=== PATIENT | female | born 1940 | race Caucasian/White ===

== ENCOUNTER 2017-07-04 04:49 | Inpatient (IN) | payer MEDICARE, OTHER ==
[2017-07-04 05:11] LABS: ADD MAN DIFF? NO
[2017-07-04 05:13] LABS: BASOPHIL # 0.1 10^3/ul (0.0-0.1); BASOPHILS % 0.7 % (0.0-2.0); EOSINOPHILS # 0.1 10^3/ul (0.0-0.5); EOSINOPHILS % 1.3 % (0.0-7.0); HEMATOCRIT 35.8 % (37.0-47.0); HEMOGLOBIN 12.4 g/dl (12.0-16.0); LYMPHOCYTES # 1.6 10^3/ul (0.8-2.9); LYMPHOCYTES % 21.2 % (15.0-51.0); MEAN CORPUSCULAR HEMOGLOBIN 30.8 pg (29.0-33.0); MEAN CORPUSCULAR HGB CONC 34.6 g/dl (32.0-37.0); MEAN CORPUSCULAR VOLUME 88.8 fl (82.0-101.0); MEAN PLATELET VOLUME 9.9 fl (7.4-10.4); MONOCYTE # 0.9 10^3/ul (0.3-0.9); MONOCYTES % 11.3 % (0.0-11.0); NEUTROPHILS % 65.2 % (39.0-77.0); PLATELET COUNT 259 10^3/UL (140-415); RED BLOOD COUNT 4.03 10^6/ul (4.20-5.40); RED CELL DISTRIBUTION WIDTH 12.3 % (11.5-14.5)
[2017-07-04 05:13] LABS: WHITE BLOOD COUNT 7.6 10^3/ul (4.8-10.8)
[2017-07-04 05:36] LABS: ANION GAP 15 (8-16); BLOOD UREA NITROGEN 18 mg/dl (7-20); CALCIUM 9.3 mg/dl (8.4-10.2); CARBON DIOXIDE 36 mmol/L (21-31); CHLORIDE 95 mmol/L (97-110); CREATININE 0.62 mg/dl (0.44-1.00); GLUCOSE 119 mg/dl (70-220); SODIUM 143 mmol/L (135-144)
[2017-07-04 05:41] LABS: POTASSIUM 2.5 mmol/L (3.5-5.1)
[2017-07-04 05:49] LABS: TROPONIN-I < 0.012 ng/ml (0.00-0.12)
[2017-07-04] MEDS: POTASSIUM CHLORIDE (SR) 20 MEQ TAB PO (05:57)
[2017-07-04] MEDS ORDERED: NITROGLYCERIN (SL) 0.4 MG TAB SL (06:00)
[2017-07-04] MEDS ORDERED: NACL 0.9% 3 ML SYG IV (06:00)
[2017-07-04] MEDS ORDERED: ONDANSETRON 4 MG INJ IV (06:00)
[2017-07-04] MEDS ORDERED: morphine 2 MG INJ IV (06:00)
[2017-07-04] MEDS ORDERED: ALBUTEROL/IPRATROPIUM (NEB) 3 ML AMP HHN (06:00)
[2017-07-04] MEDS ORDERED: ACETAMINOPHEN 325 MG TAB PO (06:00)
[2017-07-04] MEDS: POTASSIUM CHLORIDE 100 ML IVPB ×3 (06:22→11:41)
[2017-07-04] MEDS: ASPIRIN 81 MG TAB PO (09:21)
[2017-07-04] MEDS: HEPARIN 5,000 UNIT/0.5 ML VIAL SC (09:22)
[2017-07-04] MEDS ORDERED: CHLORTHALIDONE 25 MG TAB PO (09:30)
[2017-07-04] MEDS ORDERED: ALBUTEROL HFA 8 GM INHALER INH (09:30)
[2017-07-04] MEDS ORDERED: CYCLOBENZAPRINE 10 MG TAB PO (09:30)
[2017-07-04] MEDS: SALMETEROL/FLUTICASONE 250/50 INHA INH ×3 (09:30→20:48)
[2017-07-04] MEDS: AMLODIPINE 10 MG TAB PO (11:46)
[2017-07-04] MEDS: GABAPENTIN 300 MG CAP PO ×2 (12:33→20:47)
[2017-07-04 12:47] LABS: CREATINE KINASE 65 IU/L (23-200)
[2017-07-04 12:55] LABS: CK INDEX 1.1; CK-MB 0.72 ng/ml (0.0-2.4)
[2017-07-04 13:00] LABS: TROPONIN-I < 0.012 ng/ml (0.00-0.12)
[2017-07-04] MEDS: LABETALOL HCL 20MG INJ IV (15:54)
[2017-07-04] MEDS: RIVAROXABAN 20 MG TABLET PO (18:25)
[2017-07-04 18:28] LABS: CREATINE KINASE 61 IU/L (23-200)
[2017-07-04 18:41] LABS: CK INDEX 1.1; CK-MB 0.65 ng/ml (0.0-2.4)
[2017-07-04 18:49] LABS: TROPONIN-I < 0.012 ng/ml (0.00-0.12)
[2017-07-04] MEDS: MONTELUKAST 10 MG TAB PO (20:47)
[2017-07-05] MEDS: PANTOPRAZOLE (EC) 40 MG TAB PO (06:23)
[2017-07-05 07:46] LABS: ADD MAN DIFF? NO
[2017-07-05 07:53] LABS: BASOPHIL # 0.1 10^3/ul (0.0-0.1); BASOPHILS % 0.7 % (0.0-2.0); EOSINOPHILS # 0.1 10^3/ul (0.0-0.5); EOSINOPHILS % 0.8 % (0.0-7.0); HEMOGLOBIN 12.7 g/dl (12.0-16.0); LYMPHOCYTES # 1.2 10^3/ul (0.8-2.9); LYMPHOCYTES % 14.1 % (15.0-51.0); MEAN CORPUSCULAR HGB CONC 33.4 g/dl (32.0-37.0); MEAN CORPUSCULAR VOLUME 89.8 fl (82.0-101.0); MEAN PLATELET VOLUME 10.4 fl (7.4-10.4); MONOCYTE # 0.9 10^3/ul (0.3-0.9); MONOCYTES % 9.9 % (0.0-11.0); NEUTROPHIL # 6.4 10^3/ul (1.6-7.5); NEUTROPHILS % 74.3 % (39.0-77.0); PLATELET COUNT 285 10^3/UL (140-415); RED BLOOD COUNT 4.23 10^6/ul (4.20-5.40); RED CELL DISTRIBUTION WIDTH 12.7 % (11.5-14.5)
[2017-07-05 07:53] LABS: WHITE BLOOD COUNT 8.6 10^3/ul (4.8-10.8)
[2017-07-05 08:04] LABS: HEMOGLOBIN A1C 6.2 % (0-5.9)
[2017-07-05 08:18] LABS: ALANINE AMINOTRANSFERASE 25 IU/L (13-69); ALBUMIN 4.2 g/dl (3.3-4.9); ALKALINE PHOSPHATASE 136 IU/L (42-121); ANION GAP 17 (8-16); ASPARTATE AMINO TRANSFERASE 27 IU/L (15-46); BILIRUBIN,INDIRECT 0.4 mg/dl (0-1.1); BILIRUBIN,TOTAL 0.4 mg/dl (0.2-1.3); BLOOD UREA NITROGEN 15 mg/dl (7-20); CALCIUM 9.8 mg/dl (8.4-10.2); CARBON DIOXIDE 34 mmol/L (21-31); CHLORIDE 95 mmol/L (97-110); CHOL/HDL RATIO 2.3 RATIO; CHOLESTEROL 176 mg/dl (100-200); GLUCOSE 123 mg/dl (70-220); HDL CHOLESTEROL 74 mg/dl (33-92); LDL CHOLESTEROL,CALCULATED 90 mg/dl; MAGNESIUM 1.8 mg/dl (1.7-2.5); POTASSIUM 3.2 mmol/L (3.5-5.1); SODIUM 143 mmol/L (135-144); TOTAL PROTEIN 7.7 g/dl (6.1-8.1); TRIGLYCERIDES 59 mg/dl (0-149)
[2017-07-05] MEDS: GABAPENTIN 300 MG CAP PO (08:44)
[2017-07-05] MEDS: ASPIRIN 81 MG TAB PO (08:44)
[2017-07-05] MEDS: AMLODIPINE 10 MG TAB PO (08:44)
[2017-07-05] MEDS: OXYBUTYNIN (XL) 5 MG TAB PO (08:44)
[2017-07-05] MEDS: SALMETEROL/FLUTICASONE 250/50 INHA INH (08:44)
[2017-07-05 09:23] LABS: THYROID STIMULATING HORMONE 0.684 MIU/L (0.465-4.680)
[2017-07-05] MEDS: POTASSIUM CHLORIDE 20 MEQ POWDER FOR ORAL SOLN NGT (11:57)
[2017-07-05] MEDS: LISINOPRIL 5 MG TAB PO (11:57)
== END 2017-07-05 12:50 | disposition home or self-care (01) | DRG 313 ==
LOC: TEL 10:24 → E/R 04:49 → TEL 05:53
DX: R07.9 Chest pain, unspecified (principal); E11.40 Type 2 diabetes mellitus with diabetic neuropathy, unspecified; I48.2 Chronic atrial fibrillation; I10 Essential (primary) hypertension; E87.6 Hypokalemia; J45.909 Unspecified asthma, uncomplicated; I16.0 Hypertensive urgency; Z96.653 Presence of artificial knee joint, bilateral; Z79.4 Long term (current) use of insulin; Z79.82 Long term (current) use of aspirin; Z79.02 Long term (current) use of antithrombotics/antiplatelets; Z90.49 Acquired absence of other specified parts of digestive tract; Z86.711 Personal history of pulmonary embolism; Z98.1 Arthrodesis status
CPT/HCPCS: 36415; 71045; 80048; 80053; 80061; 82550; 82553; 83036; 83735; 84443; 84484; 85025; 93005; 93306; 96372; 99285-25